=== PATIENT | female | born 1980 | race Caucasian/White ===

== ENCOUNTER 2016-03-02 09:32 | Day surgery (SDC) | payer OTHER ==
[2016-02-25 16:45] VITALS: BMI 27.4
[2016-03-02] MEDS ORDERED: MIDAZOLAM HCL 2 MG/2 ML SINGLE DOSE VIAL ONE (09:58)
[2016-03-02] MEDS ORDERED: PROPOFOL 20 ML ONE ×2 (09:58→11:16)
[2016-03-02] MEDS ORDERED: LIDOCAINE HCL/PF 2% SDV 5ML VIAL ONE (10:00)
[2016-03-02] MEDS ORDERED: DEXAMETHASONE SOD PHOSPHATE 4 MG/1 ML VIAL ONE (10:01)
[2016-03-02] MEDS ORDERED: ACETAMINOPHEN 1000 MG/100 ML VIAL (NON FORMULARY) IVPB ONE (10:09)
--- NOTE | 2016-03-02 10:11 | HP ---
History & Physical Update - History History: No Change - Physical Physical: No Change - Assessment Assessment: No Change - Plan Plan: No Change
[2016-03-02] MEDS ORDERED: DEXTROSE 5%-0.45% SALINE 1,000 ML IV SCH (10:15)
[2016-03-02] MEDS ORDERED: ceFAZolin SODIUM 1 GM VIAL IVPB ONE (11:03)
[2016-03-02] MEDS ORDERED: ceFAZolin SODIUM 1 GM VIAL ONE (11:05)
[2016-03-02] MEDS ORDERED: SEVOFLURANE 250 ML BTL ONE (11:23)
[2016-03-02] MEDS ORDERED: DESFLURANE GAS 240 ML BOTTLE IH ONE (11:23)
[2016-03-02] MEDS ORDERED: oxyCODONE HCL 5 MG TABLET PO PRN (11:49)
[2016-03-02] MEDS ORDERED: ONDANSETRON 4 MG/2 ML VIAL IVPUSH PRN (11:49)
[2016-03-02] MEDS ORDERED: LACTATED RINGERS SOLUTION 1,000 ML IV SCH (12:00)
[2016-03-02] MEDS ORDERED: ACETAMINOPHEN INJECTION 100 ML IVPB ONE (12:06)
[2016-03-02] MEDS ORDERED: oxyCODONE HCL 5 MG TABLET ONE (14:35)
[2016-03-02 15:21] VITALS: TEMP 98.3
[2016-03-02 16:23] VITALS: BP 136/73; PULSE 96
--- NOTE | 2016-03-08 15:39 | OP ---
DATE OF OPERATION: 03/02/2016 PREOPERATIVE DIAGNOSIS: Stress urinary incontinence with mobile urethra. POSTOPERATIVE DIAGNOSIS: Stress urinary incontinence with mobile urethra. PROCEDURE: Suburethral sling placement and cystoscopy. ANESTHESIA: General. SURGEON: Nawaf Bar M.D. FINDINGS: Hypermobile urethra. ESTIMATED BLOOD LOSS: Minimal. DRAINS: Huynh catheter. PREOPERATIVE INDICATION: The patient is a 35-year-old female with stress urinary incontinence. She describes incontinence when she has any physical exertion. No history of urge incontinence. On exam, she has hypermobile urethra. She is offered a suburethral sling. OPERATION: Patient was brought to the OR, placed on the table in the supine position, given general anesthesia and IV antibiotics, and placed in the modified lithotomy position. The groin was then prepped and draped sterilely. Timeout was performed. A portion of the urethra was identified after placing a Huynh catheter. Pitressin was injected into the vaginal mucosa. An incision was made over the midline of the middle portion of the urethra. The vaginal mucosa was sharply dissected off the paraurethral tissues in the lateral fashion. Bladder was emptied, and trocars were used to place the suburethral mini sling under fingertip control by passing the trocar from the vaginal incision toward the obturator canal. It was appropriately, excess suture was removed. Cystoscopy revealed no evidence of perforation, otherwise the bladder appeared to be unremarkable. Incision was closed with 3-0 Vicryl suture. Huynh catheter and packing were left in place. Patient was woken up. Idris MARTINO/[id number]
== END 2016-03-02 15:45 | disposition home or self-care (01) ==
LOC: JASU-SURG 09:32
PROVIDERS: ATTEND Urology
PROC: 0TSD0ZZ Reposition Urethra, Open Approach (ICD-10-PCS; principal; 2016-03-02 10:00)
DX: N39.3 Stress incontinence (female) (male) (principal)
CPT/HCPCS: 84703; 94760